=== PATIENT | female | born 1955 | race Caucasian/White ===

== ENCOUNTER 2018-10-06 15:30 | Emergency (ER) | payer BC, OTHER ==
[2018-10-06 15:44] VITALS: RESP 18
[2018-10-06] MEDS ORDERED: LIDOCAINE 5% PATCH TOPICAL STA (15:52)
[2018-10-06] MEDS ORDERED: DIAZEPAM 5 MG/ML 2 ML INJ IVP STA (15:52)
[2018-10-06] MEDS ORDERED: KETOROLAC 30 MG/ML 1 ML VIAL IM STA (15:52)
[2018-10-06] MEDS ORDERED: DIAZEPAM 5 MG/ML 2 ML INJ IM ONE (16:00)
--- NOTE | 2018-10-06 16:26 | XR ---
EXAMINATION TYPE: XR thoracic spine complete DATE OF EXAM: 10/06/2018 COMPARISON: Chest x-ray 08/14/2013 HISTORY: Back pain TECHNIQUE: 3 views FINDINGS: Thoracic vertebra have fairly normal spacing and alignment. There is no compression fractur e. There is minor spurring of the endplates. There is lower cervical spine fusion surgery. There is n o thoracic or spinal mass. Posterior elements appear intact. IMPRESSION: Minimal multilevel spondylotic changes. No fracture.
[2018-10-06] MEDS ORDERED: MORPHINE SULFATE 4 MG/ML SYRINGE IVP STA (17:02)
[2018-10-06] MEDS ORDERED: MORPHINE SULFATE 2 MG/ML SYRINGE IM STA (17:12)
--- NOTE | 2018-10-06 17:18 | ED ---
Back Pain HPI - General Chief Complaint: Back Pain/Injury Stated Complaint: Back pain Time Seen by Provider: 10/06/18 15:47 Source: patient Limitations: no limitations - History of Present Illness Initial Comments: Patient is 63-year-old male presenting to emergency Department with a chief complaint of back pain. Patient reports chronic pain in her thoracic region with recurrent similar episodes over the past few years. 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 Patient reports thoracic vertebral and left paraspinal tenderness. Patient reports the pain is exacerbated with any movement. Patient reports the pain feels like muscle spasms that come and go. Patient reports multiple surgical procedures on her cervical and lumbar spine. Patient reports taking [id number] analgesics with minimal improvement. Patient denies one-sided extremity weakness or focal neural deficits. Patient denies chest pain, chest tightness, shortness of breath, abdominal pain, nausea or vomiting. - Related Data Home Medications Medication Instructions Recorded Confirmed Lisinopril-Hctz 20-12.5 mg 1 tab PO BID 08/15/13 06/17/15 [Zestoretic 20-12.5] Simvastatin [Zocor] 20 mg PO HS 08/15/13 06/17/15 Zolpidem [Ambien] 10 mg PO HS PRN 08/15/13 06/17/15 glyBURIDE [Diabeta] 5 mg PO AC-BID 08/15/13 06/17/15 metFORMIN HCL 1,000 mg PO BID 08/15/13 06/17/15 traMADol HCl [Ultram] 100 mg PO Q4HR PRN 11/19/14 06/17/15 Previous Rx's Medication Instructions Recorded Hydrocodone/Acetaminophen [[place] 1 each PO Q4H PRN #90 tab 02/07/14 10-325] Cyclobenzaprine [Flexeril] 10 mg PO TID PRN #15 tab 10/06/18 Allergies Allergy/AdvReac Type Severity Reaction Status Date / Time No Known Allergies Allergy Verified 10/06/18 15:41 Review of Systems ROS Statement: Those systems with pertinent positive or pertinent negative responses have been documented in the HPI. ROS Other: All systems not noted in ROS Statement are negative. Past Medical History Past Medical History: Diabetes Mellitus, Hyperlipidemia, Hypertension, Musculoskeletal Disorder Additional Past Medical History / Comment(s): DDD History of Any Multi-Drug Resistant Organisms: None Reported Past Surgical History: Back Surgery, Orthopedic Surgery Additional Past Surgical History / Comment(s): BILAT CTR, RT SHOULDER SURGERY Past Anesthesia/Blood Transfusion Reactions: No Reported Reaction Past Psychological History: No Psychological Hx Reported Smoking Status: Current every day smoker Past Alcohol Use History: Rare Past Drug Use History: None Reported - Past Family History Mother Family Medical History: Deep Vein Thrombosis (DVT) Father Family Medical History: Cancer General Exam Limitations: no limitations General appearance: alert, in no apparent distress Head exam: Present: atraumatic, normocephalic, normal inspection Eye exam: Present: normal appearance, PERRL, EOMI Pupils: Present: normal accommodation ENT exam: Present: normal exam, mucous membranes moist, normal external ear exam Neck exam: Present: normal inspection, full ROM Respiratory exam: Present: normal lung sounds bilaterally Cardiovascular Exam: Present: normal rhythm, tachycardia, normal heart sounds GI/Abdominal exam: Present: soft. Absent: tenderness Extremities exam: Present: normal inspection, full ROM, normal capillary refill, other (+2 dorsalis pedis and posterior tibialis bilaterally. +2 over and radial pulses bilaterally) Back exam: Present: normal inspection (Scarring noted in the cervical lumbar region from previous surgical procedures.), tenderness (Thoracic and left paraspinal tenderness), paraspinal tenderness, vertebral tenderness. Absent: full ROM (Limited range of motion due to pain), CVA tenderness (R), CVA te nderness (L) Neurological exam: Present: alert, oriented X3 Psychiatric exam: Present: normal affect, normal mood Skin exam: Present: warm, intact, normal color Course Vital Signs 10/06/18 15:42 Temperature 97.8 F Pulse Rate 109 H Respiratory 18 Rate Blood Pressure 110/70 O2 Sat by Pulse 99 Oximetry Medical Decision Making - Medical Decision Making Patient is 63-year-old female presents emergency Department with a chief complaint of back pain. X-ray of the thoracic spine is indicative of musculoskeletal spondylitic changes but no fractures or dislocations. Patient was given Valium, Toradol, Lidoderm patch. On reevaluation patient reports minor improvement but the pain is still present with movement. Patient was given morphine. Patient will be discharged with Flexeril. Based on history, ph ysical examination and imaging I have low suspicion for a thoracic dissection. Patient has equal bilateral pulses and no focal neural deficits. Patient advised to follow-up with orthopedics for further management. Strict return parameters were thoroughly discussed with patient was understanding and agreeable. Case discussed with physician. Disposition Clinical Impression: Thoracic back pain Disposition: HOME SELF-CARE Condition: Stable Instructions (If sedation given, give patient instructions): Thoracic Pain (ED) Additional Instructions: Please follow up with orthopedics. Alternate between Tylenol and ibuprofen for pain control. Please return to emergency department if symptoms worsen. Prescriptions: Cyclobenzaprine [Flexeril] 10 mg PO TID PRN #15 tab PRN Reason: Muscle Spasm Is patient prescribed a controlled substance at d/c from ED?: No Referrals: Donavan Allan MD [Primary Care Provider] - 1-2 days Brett Echevarria MD [STAFF PHYSICIAN] - 1-2 days Time of Disposition: 17:18
[2018-10-06] MEDS ORDERED: CYCLOBENZAPRINE 10MG STARTER 3 TAB BTL PO STA (17:47)
[2018-10-06 18:04] VITALS: BP 112/78; PULSE 92; TEMP 98
== END 2018-10-06 18:03 | disposition home or self-care (01) ==
LOC: EC 15:30
DX: M54.6 Pain in thoracic spine (principal); M47.814 Spondylosis without myelopathy or radiculopathy, thoracic region; R00.0 Tachycardia, unspecified; L90.5 Scar conditions and fibrosis of skin; G89.29 Other chronic pain; E11.9 Type 2 diabetes mellitus without complications; E78.5 Hyperlipidemia, unspecified; I10 Essential (primary) hypertension; F17.200 Nicotine dependence, unspecified, uncomplicated; Z79.84 Long term (current) use of oral hypoglycemic drugs; Z79.899 Other long term (current) drug therapy; Z98.890 Other specified postprocedural states; Z53.8 Procedure and treatment not carried out for other reasons
CPT/HCPCS: 72072; 99284; 96372 ×3; J3360; J1885; J2270